=== PATIENT | female | born 1990 | race Caucasian/White ===

== ENCOUNTER 2023-12-09 07:52 | Observation (INO) | payer BC ==
[~2023-12-09 07:52] MED LIST: Bupivacaine 0.5% 30 ML SDV ONE; Lactated Ringers 1,000 ML IV SCH; Sodium Chloride 0.9% 10 ML Syringe FLUSH PRN; Sodium Chloride 0.9% 10 ML Syringe FLUSH SCH
[2023-12-09] MEDS ORDERED: Propofol 200 MG/20 ML SDV ONE (08:40)
[2023-12-09] MEDS ORDERED: Midazolam 1 MG/ML 2 ML SDV ONE (08:40)
[2023-12-09] MEDS ORDERED: fentaNYL 250 MCG/5 ML SDV ONE (08:40)
[2023-12-09] MEDS ORDERED: ceFAZolin 2 GM Vial ONE (08:42)
[2023-12-09] MEDS ORDERED: Rocuronium 50 MG/5 ML Vial ONE (08:44)
[2023-12-09] MEDS ORDERED: Ondansetron 4 MG/2 ML SDV ONE (08:45)
[2023-12-09] MEDS ORDERED: Ketorolac 30 MG/ML SDV ONE (08:45)
[2023-12-09] MEDS ORDERED: Sugammadex Sodium 200 MG/2 ML VIAL IV ONE (08:47)
[2023-12-09 09:17] LABS: APPEARANCE,URINE CLEAR (Clear); BILIRUBIN,URINE NEGATIVE (Negative); COLOR,URINE YELLOW (Yellow); GLUCOSE,URINE NEGATIVE (Negative); KETONES,URINE NEGATIVE (Negative); LEUKOCYTE ESTERASE,URINE NEGATIVE (Negative); NITRITE,URINE NEGATIVE (Negative); OCCULT BLOOD,URINE NEGATIVE (Negative); PH,URINE 5.5 (5.0-8.0); PROTEIN,URINE NEGATIVE (Negative); UROBILINOGEN,URINE 0.2 (0.2-1.0)
[2023-12-09] MEDS ORDERED: HYDROmorphone 0.5 MG/0.5 ML Syringe ONE ×4 (10:00→10:54)
[2023-12-09] MEDS: Bupivacaine 0.25% 10 ML SDV ONE (10:02)
[2023-12-09] MEDS: EPINEPHrine 1 MG/ML SDV ONE (10:02)
[2023-12-09] MEDS ORDERED: fentaNYL 100 MCG/2 ML SDV ONE ×2 (10:09→10:49)
[2023-12-09] MEDS ORDERED: dexmedeTOMIDine HCl 200 MCG/2 ML SDV ONE (10:18)
[2023-12-09] MEDS ORDERED: Lactated Ringers 1,000 ML ONE (10:30)
[2023-12-09] MEDS ORDERED: Dexamethasone 4 MG/ML 5 ML MDV ONE (10:50)
[2023-12-09] MEDS ORDERED: HYDROmorphone 0.5 MG/0.5 ML Syringe IVPUSH PRN (11:57)
[2023-12-09] MEDS: fentaNYL 100 MCG/2 ML SDV IVPUSH PRN (12:04)
[2023-12-09] MEDS ORDERED: Acetaminophen/oxyCODONE 325-5 MG Tab PO PRN (13:20)
[2023-12-09] MEDS ORDERED: Magnesium Hydroxide 400 MG/5 ML Susp 30 ML Cup PO PRN (13:20)
[2023-12-09] MEDS ORDERED: Ondansetron 4 MG Tab.DIS PO PRN (13:20)
[2023-12-09] MEDS: Acetaminophen/oxyCODONE 325-5 MG Tab PO PRN (14:00)
[2023-12-09] MEDS: Enoxaparin 40 MG/0.4 ML Syringe SUBCUT SCH (15:58)
[2023-12-09] MEDS: Ketorolac 30 MG/ML SDV IVPUSH PRN (18:01)
[2023-12-09 18:20] LABS: HEMATOCRIT 42.2 % (37.0-47.0); HEMOGLOBIN 14.2 gm/dl (12.0-16.0); MEAN CORPUSCULAR HEMOGLOBIN 29.9 pg (28.0-32.0); MEAN CORPUSCULAR HGB CONC 33.6 g/dl (32.0-36.0); MEAN CORPUSCULAR VOLUME 88.8 fl (83.0-99.0); MEAN PLATELET VOLUME 10.4 fl (9.4-12.3); PLATELET COUNT,PLT 307 K/mm3 (150-400); RED BLOOD CELL COUNT 4.75 M/mm3 (4.10-5.30); WHITE BLOOD CELL COUNT,WBC 17.14 K/mm3 (3.9-11.3)
[2023-12-09] MEDS: Docusate Sodium 100 MG Cap PO SCH (20:58)
[2023-12-10 06:13] LABS: HEMATOCRIT 37.6 % (37.0-47.0); HEMOGLOBIN 12.5 gm/dl (12.0-16.0); MEAN CORPUSCULAR HGB CONC 33.2 g/dl (32.0-36.0); MEAN CORPUSCULAR VOLUME 90.2 fl (83.0-99.0); MEAN PLATELET VOLUME 10.7 fl (9.4-12.3); PLATELET COUNT,PLT 285 K/mm3 (150-400); RED BLOOD CELL COUNT 4.17 M/mm3 (4.10-5.30); WHITE BLOOD CELL COUNT,WBC 14.76 K/mm3 (3.9-11.3)
[2023-12-10] MEDS: Ibuprofen 600 MG Tab PO PRN (10:42)
== END 2023-12-10 11:00 | disposition home or self-care (01) ==
LOC: JD.SDS 07:52 → JD.OB 13:54
PROVIDERS: ADMIT Obstetrics & Gynecology; ATTEND Obstetrics & Gynecology
DX: N72 Inflammatory disease of cervix uteri (principal); N83.8 Other noninflammatory disorders of ovary, fallopian tube and broad ligament; J45.909 Unspecified asthma, uncomplicated; F31.9 Bipolar disorder, unspecified; F41.9 Anxiety disorder, unspecified; Z87.891 Personal history of nicotine dependence; Z79.899 Other long term (current) drug therapy; Z88.2 Allergy status to sulfonamides
CPT/HCPCS: 36415; 58150; 81003; 81025; 85027; 86850; 86900; 86901; 96374; 96376; A9270; G0378; J0171; J0665; J0690; J1100; J1170; J1650; J1885; J2250; J2405; J2704; J3010; J7120; 00840; J3490